=== PATIENT | male | born 1970 | race American Indian/Alaskan Native ===

== ENCOUNTER 2016-10-28 21:30 | Emergency (ER) | payer SELFPAY ==
[2016-10-28] MEDS ORDERED: DILANTIN 1,000 MG in NACL 0.9% 250ML 250 ML IV ONE (22:48)
[2016-10-28] MEDS ORDERED: ZOFRAN IV ONE (22:48)
[2016-10-28] MEDS ORDERED: MORPHINE IV ONE (22:48)
[2016-10-28] MEDS ORDERED: KEPPRA 1,000 MG/NS 0.75% 100ML 1,000 MG/100 ML BAG IV ONE (22:48)
[2016-10-28] MEDS ORDERED: TORADOL IV ONE (22:49)
[2016-10-28 23:29] LABS: Hematocrit 38.5 % (35.5-45.6); Mean Corpuscular HGB Conc 34 % (32-34); Mean Corpuscular Hemoglobin 32 pg (28-32); Mean Corpuscular Volume 94 fl (84-94); Platelet Count 300 K/mm3 (140-440); Red Blood Count 4.12 M/mm3 (3.65-5.03); Red Cell Distribution Width 14.5 % (13.2-15.2); White Blood Count 11.6 K/mm3 (4.5-11.0)
[2016-10-28 23:50] LABS: Anion Gap 18 mmol/L; BUN/Creatinine Ratio 8.75; Blood Urea Nitrogen 7 mg/dL (9-20); Calcium 8.9 mg/dL (8.4-10.2); Carbon Dioxide 26 mmol/L (22-30); Chloride 89.7 mmol/L (98-107); Glucose 95 mg/dL (75-100); Magnesium 1.7 mg/dL (1.7-2.3); Potassium 3.6 mmol/L (3.6-5.0); Sodium 130 mmol/L (137-145)
[2016-10-29] MEDS ORDERED: NACL 0.9% 1000 ML 1,000 ML IV ONE (00:13)
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
[2016-10-29 00:41] VITALS: BP 125/81
[2016-10-29] MEDS ORDERED: ATIVAN IV ONE (01:09)
[2016-10-29] MEDS ORDERED: ATIVAN PO ONE (01:35)
== END 2016-10-29 02:07 | disposition home or self-care (01) ==
LOC: ED 21:30
DX: R56.9 Unspecified convulsions (principal); E87.1 Hypo-osmolality and hyponatremia
CPT/HCPCS: 36415; 80048; 80185; 82962; 83735; 85027; 96361; 96365; 96368; 96375; 99284; J1165; J1885; J1953; J2270; J2405; J7030; J7050